=== PATIENT | female | born 1995 | race Caucasian/White ===

== ENCOUNTER → 2018-05-23 | Day surgery (SDC) | payer OTHER ==
[~2018-05-23] MED LIST: BUPIVACAINE HCL 0.5% INJ 30 ML VIAL INJ ONE; CEFAZOLIN SOD 2 GM/D5W 50ML 50 ML IV ONE; DEXAMETHASONE SOD PHOS INJ 4 MG/ML VIAL ONE; FENTANYL CITRATE/PF 100MCG/2 ML INJ ONE; KETOROLAC TROMETHAMINE 30 MG/ML VIAL ONE; LIDOCAINE HCL 2% LOCAL INJ 5 ML SDV VIAL INJ ONE; MEPERIDINE HCL INJ 50 MG/ML INJ ONE; MIDAZOLAM HCL 2 MG/2 ML VIAL ONE; NEOSTIGMINE 1 MG/ML 10ML VIAL ONE; ONDANSETRON HCL INJ 2 MG/ML VIAL ONE; PROPOFOL IV EMULSION 10 MG/ML 20 ML VIAL ONE; SEVOFLURANE INHAL SOLN 250 ML PEN BTL ONE
[2018-05-23] MEDS: FENTANYL CITRATE/PF 100MCG/2 ML INJ ONE (08:12)
--- NOTE | 2018-05-23 11:36 | Diagnostic Imaging Report ---
PROCEDURE:X-RAY RIGHT FOOT, TWO VIEWS COMPARISON:None. INDICATIONS:STATUS POST RIGHT FOOT SURGERY; tarsal coalition FINDINGS: The bones are well-mineralized and in anatomic alignment without fracture or focal osseous lesion. The soft-tissues are unremarkable. CONCLUSION: As above. Dictated by: Megan Jiang M.D. on 05/23/2018 at 11:41 Electronically approved by: Megan Jiang M.D. on 05/23/2018 at 11:41
--- NOTE | 2018-05-25 22:10 | Operative Report ---
DATE OF PROCEDURE: May 23, 2018 PREOPERATIVE DIAGNOSES: 1. Tarsal coalition right foot. 2. 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 POSTOPERATIVE DIAGNOSES: 1. Tarsal coalition right foot. 2. 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 TITLE OF THE OPERATION: 1. Excision of tarsal coalition dorsal aspect of the right foot. 2. Neurolysis deep peroneal nerve dorsal aspect of the right foot. ANESTHESIA: General endotracheal. HEMOSTASIS: A right thigh tourniquet at 350 mmHg. PROCEDURE IN DETAIL: The patient was taken to the operating room in a mildly sedated state, placed upon the operating table in supine position. Following induction of a general anesthetic, the right lower extremity was elevated to 60 degrees to exsanguinate before inflating the pneumatic thigh tourniquet to 350 mmHg hemostasis. The right lower extremity was placed on the operating table prior to performing the following procedure. Procedure #1: Excision of the tarsal coalition of the right foot: An approximately 6-cm dorsal linear incision was made overlying the dorsomedial aspect of the 1st metatarsophalangeal joint of the right foot. The incision was deepened via sharp and blunt dissection to the level of the dorsal capsular structure. Care was taken to identify and retract all vital structures encountered. The overlying tarsus was noted to be coalesced and a curved osteotome was used to remove the dorsal bone from the metatarsal cuneiform and talar junctions. This area was smoothed significantly with not only a rasp, but also a power reciprocating rasp. The area was then irrigated with copious amounts of sterile saline solution and deep closure with 3-0 Vicryl and skin closure with 4-0 nylon. The area of the deep peroneal nerve was identified and noted to be entrapped probably secondary to the previous bony prominence. A linear incision was made overlying the deep peroneal nerve which was traced to its dorsal root extension. The nerve was noted to be entrapped within extensor tendon sheath and neurolysis was performed utilizing operating microscope. The release was irrigated and closed with a combination of 4-0 Vicryl and 4-0 Prolene. The areas of surgery were all blocked with 0.5 Marcaine, Decadron [place]. Release of the pneumatic thigh tourniquet showed a normal hyperemic flush to all digits of the right foot. The patient left the operating room with vital signs stable and in apparent satisfactory condition, having tolerated both anesthetic and procedure very well. Job#: [id number] AIDA
== END | disposition home or self-care (01) ==
LOC: OR 05:29
PROVIDERS: ATTEND Podiatrist Foot Surgery
DX: Q66.89 Other specified congenital deformities of feet (principal); G57.31 Lesion of lateral popliteal nerve, right lower limb; M19.071 Primary osteoarthritis, right ankle and foot; Z01.812 Encounter for preprocedural laboratory examination
CPT/HCPCS: 28116; 36415; 64704; 64727; 73620; 84702; 88305; 88311; J1100; J1885; J2001; J2175; J2250; J2405; J2710

== ENCOUNTER → 2018-07-18 | Day surgery (SDC) | payer OTHER ==
[2018-07-15 15:56] LABS: BASOPHILS # (AUTO) 0.1 (0.0-0.1); BASOPHILS % 0.7 % (0.0-1.0); EOSINOPHILS # (AUTO) 0.2 (0.0-0.4); EOSINOPHILS % 2.2 % (0.0-6.0); HEMATOCRIT 36.7 % (34.2-44.1); HEMOGLOBIN 12.4 g/dL (12.0-16.0); LYMPHOCYTES # (AUTO) 2.5 (1.0-3.2); LYMPHOCYTES % 32.5 % (18.0-39.1); MEAN CORPUSCULAR HEMOGLOBIN 30.3 pg (28-32); MEAN CORPUSCULAR HGB CONC 33.8 g/dL (31-35); MEAN CORPUSCULAR VOLUME 89.7 fL (81-99); MONOCYTES # (AUTO) 0.6 (0.2-0.8); MONOCYTES % 7.9 % (4.4-11.3); NEUTROPHILS # (AUTO) 4.3 (2.1-6.9); NEUTROPHILS % 56.6 % (38.7-80.0); PLATELET COUNT 246 x10e3/uL (140-360); RED BLOOD COUNT 4.09 x10e6/uL (3.6-5.1); RED CELL DISTRIBUTION WIDTH 12.6 % (11.7-14.4)
[2018-07-15 16:21] LABS: ANION GAP 13.8 mmol/L (8-16); BLOOD UREA NITROGEN 14 mg/dL (7-26); BUN/CREATININE RATIO 18 (6-25); CALCIUM 9.7 mg/dL (8.4-10.2); CARBON DIOXIDE 25 mmol/L (22-29); CHLORIDE 106 mmol/L (98-107); CREATININE, SERUM 0.77 mg/dL (0.57-1.11); EST GLOMERULAR FILTRATION RATE > 60 ML/MIN (60-); GLUCOSE 92 mg/dL (74-118); POTASSIUM 3.8 mmol/L (3.5-5.1); SODIUM 141 mmol/L (136-145)
--- NOTE | 2018-07-15 16:40 | Diagnostic Imaging Report ---
EXAMINATION: CHEST 2 VIEWS INDICATION: Arthritis. PRE OP \S\DR ORDERS COMPARISON: None FINDINGS: PA and lateral views TUBES and LINES: None. LUNGS: Lungs are well inflated. Calcified granuloma in the left midlung. Calcified granuloma in the lateral left midlung. Lungs are clear. There is no evidence of pneumonia or pulmonary edema. PLEURA: No pleural effusion or pneumothorax. HEART AND MEDIASTINUM: The cardiomediastinal silhouette is unremarkable. Slightly prominent main pulmonary artery and left atrial appendage. On lateral x-ray, questionable mediastinal lymph nodes. BONES AND SOFT TISSUES: No acute osseous lesion. Soft tissues are unremarkable. UPPER ABDOMEN: No free air under the diaphragm. IMPRESSION: 1. Slightly prominent pulmonary artery and left atrial appendage. Recommend echocardiogram. 2. On lateral x-ray, questionable mediastinal lymph nodes. Signed by: Dr. Isaiah Taylor M.D. on 07/15/2018 4:36 PM
[~2018-07-18] MED LIST changes: -MEPERIDINE HCL INJ 50 MG/ML INJ ONE; +MUPIROCIN 2% OINT 22 GM TUBE ONE; -NEOSTIGMINE 1 MG/ML 10ML VIAL ONE
[2018-07-18 09:30] VITALS: BP 116/68
--- NOTE | 2018-07-18 11:32 | Operative Report ---
DATE OF PROCEDURE: July 18, 2018 PREOPERATIVE DIAGNOSIS: Tarsal coalition, dorsal aspect of the left foot with nerve entrapment, deep peroneal nerve, left foot. POSTOPERATIVE DIAGNOSIS: Tarsal coalition, dorsal aspect of the left foot with nerve entrapment, deep peroneal nerve, left foot. TITLE OF THE OPERATION 1. Excision of the dorsal tarsal coalition, left foot. 2. Neurolysis of the deep peroneal nerve, left foot. PROCEDURE IN DETAIL: The patient was taken to the operating room in a mildly sedated state and placed upon the operating table in the supine position. Following induction of general anesthetic, the left lower extremity was elevated to 60 degrees to exsanguinate before inflating the pneumatic thigh tourniquet to 350 mmHg for hemostasis. The left lower extremity was placed upon the operating table prior to performing the following procedure: Procedure #1: Excision of dorsal tarsal coalition of the left foot. Linear incision was made across the dorsomedial aspect of the dorsum of the left foot. Incision was deepened via sharp and blunt dissection at the level of the dorsal capsular structure. Care was taken to identify and retract all vital structures encountered. The large dorsal prominence was identified and remodeled utilizing oscillating saw. A dorsal tarsal calcaneal bar was noted and after resection, there was normal motion between the talus navicular and dorsum of the first metatarsal cuneiform joint. All areas were irrigated with copious amounts of sterile saline solution. Deep closure with 3-0 Vicryl and skin closure with 4-0 nylon. Procedure #2: Neurolysis of the deep peroneal nerve. A linear incision was made overlying the deep peroneal nerve and the area of entrapment was identified and dissected free from all surrounding and constricting materials. A brightening of the nerve was noted once the release of hypertrophic material and the underlying bone spur had been removed. The area was then irrigated with copious amounts of sterile saline solution. Deep closure with 3-0 Vicryl and skin closure with 4-0 nylon. Human tissue allograft was used to facilitate healing over that dorsal tarsal coalition as well as the area of the nerve entrapment. The release of pneumatic thigh tourniquet showed a normal hyperemic flush to all digits of the left foot. The patient left the operating room with vital signs stable in apparent satisfactory condition, having tolerated both the anesthetic and procedure very well. Job#: [id number] MILLY
== END | disposition home or self-care (01) ==
LOC: OR 05:35
PROVIDERS: ATTEND Podiatrist Foot Surgery
DX: Q66.89 Other specified congenital deformities of feet (principal); G57.32 Lesion of lateral popliteal nerve, left lower limb; M77.52 Other enthesopathy of left foot and ankle; Z01.812 Encounter for preprocedural laboratory examination; Z01.818 Encounter for other preprocedural examination
CPT/HCPCS: 28116; 36415; 64704; 71046; 80048; 81025; 85025; J1100; J1885; J2001; J2250; J2405; Q4100